=== PATIENT | female | born 1970 | race Caucasian/White ===

== ENCOUNTER 2019-02-15 19:39 | Emergency (ER) | payer OTHER ==
[2019-02-15 22:54] LABS: ADD MAN DIFF? NO
[2019-02-15 22:56] LABS: BASOPHILS % 0.5 % (0.0-2.0); EOSINOPHILS # 0.1 10^3/ul (0.0-0.5); EOSINOPHILS % 1.4 % (0.0-7.0); HEMATOCRIT 37.4 % (37.0-47.0); HEMOGLOBIN 11.6 g/dl (12.0-16.0); LYMPHOCYTES # 2.2 10^3/ul (0.8-2.9); LYMPHOCYTES % 32.5 % (15.0-51.0); MEAN CORPUSCULAR HEMOGLOBIN 23.9 pg (29.0-33.0); MEAN CORPUSCULAR VOLUME 77.1 fl (82.0-101.0); MEAN PLATELET VOLUME 9.5 fl (7.4-10.4); MONOCYTE # 0.6 10^3/ul (0.3-0.9); MONOCYTES % 8.4 % (0.0-11.0); NEUTROPHIL # 3.8 10^3/ul (1.6-7.5); NEUTROPHILS % 56.9 % (39.0-77.0); PLATELET COUNT 292 10^3/UL (140-415); RED BLOOD COUNT 4.85 10^6/ul (4.20-5.40); RED CELL DISTRIBUTION WIDTH 13.9 % (11.5-14.5)
[2019-02-15 22:56] LABS: WHITE BLOOD COUNT 6.7 10^3/ul (4.8-10.8)
[2019-02-15 23:02] LABS: ADD UMIC YES; UR ASCORBIC ACID NEGATIVE (NEGATIVE); UR BACTERIA FEW /HPF (NONE SEEN); UR BILIRUBIN (Dip) NEGATIVE (NEGATIVE); UR BLOOD (Dip) 3+ mg/dL (NEGATIVE); UR CLARITY CLOUDY (CLEAR); UR COLOR YELLOW (YELLOW); UR GLUCOSE (Dip) NEGATIVE (NEGATIVE); UR KETONES (Dip) TRACE mg/dL (NEGATIVE); UR LEUKOCYTE ESTERASE (Dip) 3+ Leu/ul (NEGATIVE); UR NITRITE (Dip) NEGATIVE (NEGATIVE); UR RBC > 182 /HPF (0-5); UR SPECIFIC GRAVITY (Dip) 1.015 (1.003-1.030); UR SQUAMOUS EPITHELIAL CELL FEW /HPF (FEW); UR TOTAL PROTEIN (Dip) 1+ mg/dl (NEGATIVE); UR UROBILINOGEN (Dip) NEGATIVE (NEGATIVE); UR WBC > 182 /HPF (0-5)
[2019-02-15] MEDS: SOD CHLORIDE 0.9% 1,000 ML IV (23:22)
[2019-02-15] MEDS: ONDANSETRON 4 MG INJ IV (23:22)
[2019-02-15] MEDS: morphine 4 MG/ML VIAL IV (23:22)
[2019-02-15] MEDS: KETOROLAC 30 MG INJ IV (23:23)
[2019-02-15 23:24] LABS: ALANINE AMINOTRANSFERASE 21 IU/L (13-69); ALBUMIN 4.4 g/dl (3.3-4.9); ALBUMIN/GLOBULIN RATIO 1.33; ALKALINE PHOSPHATASE 88 IU/L (42-121); ANION GAP 12 (5-13); ASPARTATE AMINO TRANSFERASE 21 IU/L (15-46); BILIRUBIN,INDIRECT 0.2 mg/dl (0-1.1); BILIRUBIN,TOTAL 0.2 mg/dl (0.2-1.3); BLOOD UREA NITROGEN 18 mg/dl (7-20); CALCIUM 9.6 mg/dl (8.4-10.2); CARBON DIOXIDE 20 mmol/L (21-31); CHLORIDE 107 mmol/L (97-110); CREATININE 0.63 mg/dl (0.44-1.00); Estimated GFR > 60 mL/min (>60); GLUCOSE 94 mg/dl (70-220); LIPASE 230 U/L (23-300); SODIUM 139 mmol/L (135-144); TOTAL PROTEIN 7.7 g/dl (6.1-8.1)
[2019-02-16] MEDS: HYDROmorphONE 1 MG/ML SYG IV (03:25)
== END 2019-02-16 05:50 | disposition home or self-care (01) ==
LOC: E/R 02-16 05:50
DX: R10.9 Unspecified abdominal pain (principal); Z87.891 Personal history of nicotine dependence
CPT/HCPCS: 36415; 74176; 80053; 81001; 81025; 83690; 85025; 87086; 96374; 96375; 99284-25

== ENCOUNTER 2019-03-04 20:14 | Inpatient (IN) | payer OTHER ==
[2019-03-04] MEDS: ONDANSETRON 4 MG INJ IV (20:50)
[2019-03-04] MEDS: HYDROmorphONE 0.5 MG/0.5 ML SYG IV (20:50)
[2019-03-04] MEDS: SOD CHLORIDE 0.9% 1,000 ML IV (20:52)
[2019-03-04 21:00] LABS: ADD MAN DIFF? NO; BASOPHILS % 0.4 % (0.0-2.0); EOSINOPHILS # 0.1 10^3/ul (0.0-0.5); HEMATOCRIT 29.4 % (37.0-47.0); HEMOGLOBIN 8.9 g/dl (12.0-16.0); LYMPHOCYTES # 2.2 10^3/ul (0.8-2.9); LYMPHOCYTES % 48.6 % (15.0-51.0); MEAN CORPUSCULAR HEMOGLOBIN 23.5 pg (29.0-33.0); MEAN CORPUSCULAR HGB CONC 30.3 g/dl (32.0-37.0); MEAN CORPUSCULAR VOLUME 77.6 fl (82.0-101.0); MONOCYTE # 0.5 10^3/ul (0.3-0.9); MONOCYTES % 10.4 % (0.0-11.0); NEUTROPHIL # 1.8 10^3/ul (1.6-7.5); NEUTROPHILS % 38.4 % (39.0-77.0); PLATELET COUNT 235 10^3/UL (140-415); RED BLOOD COUNT 3.79 10^6/ul (4.20-5.40)
[2019-03-04 21:00] LABS: WHITE BLOOD COUNT 4.6 10^3/ul (4.8-10.8)
[2019-03-04] MEDS ORDERED: NACL 0.9% 3 ML SYG IV (21:00)
[2019-03-04] MEDS ORDERED: ACETAMINOPHEN 325 MG TAB PO (21:00)
[2019-03-04 21:18] LABS: ALANINE AMINOTRANSFERASE 20 IU/L (13-69); ALBUMIN 3.5 g/dl (3.3-4.9); ALBUMIN/GLOBULIN RATIO 1.29; ALKALINE PHOSPHATASE 69 IU/L (42-121); ANION GAP 6 (5-13); ASPARTATE AMINO TRANSFERASE 21 IU/L (15-46); BILIRUBIN,INDIRECT 0.2 mg/dl (0-1.1); BILIRUBIN,TOTAL 0.2 mg/dl (0.2-1.3); BLOOD UREA NITROGEN 13 mg/dl (7-20); CALCIUM 8.7 mg/dl (8.4-10.2); CARBON DIOXIDE 22 mmol/L (21-31); CHLORIDE 113 mmol/L (97-110); CREATININE 0.69 mg/dl (0.44-1.00); Estimated GFR > 60 mL/min (>60); GLUCOSE 103 mg/dl (70-220); POTASSIUM 4.2 mmol/L (3.5-5.1); SODIUM 141 mmol/L (135-144); TOTAL PROTEIN 6.2 g/dl (6.1-8.1)
[2019-03-05] MEDS: HYDROmorphONE 0.5 MG/0.5 ML SYG IV ×6 (01:04→22:18)
[2019-03-05] MEDS ORDERED: CEFTRIAXONE 1 GM/50 ML (PMX) 50 ML IVPB (03:30)
[2019-03-05] MEDS: TAMSULOSIN (SR) 0.4 MG CAP PO ×2 (04:48→21:28)
[2019-03-05 05:39] LABS: ADD MAN DIFF? NO
[2019-03-05 05:51] LABS: WHITE BLOOD COUNT 4.6 10^3/ul (4.8-10.8)
[2019-03-05 05:51] LABS: BASOPHILS % 0.7 % (0.0-2.0); EOSINOPHILS # 0.1 10^3/ul (0.0-0.5); EOSINOPHILS % 1.8 % (0.0-7.0); HEMATOCRIT 29.9 % (37.0-47.0); HEMOGLOBIN 9.1 g/dl (12.0-16.0); LYMPHOCYTES # 1.6 10^3/ul (0.8-2.9); LYMPHOCYTES % 34.6 % (15.0-51.0); MEAN CORPUSCULAR HEMOGLOBIN 23.5 pg (29.0-33.0); MEAN CORPUSCULAR HGB CONC 30.4 g/dl (32.0-37.0); MEAN CORPUSCULAR VOLUME 77.3 fl (82.0-101.0); MEAN PLATELET VOLUME 10.3 fl (7.4-10.4); MONOCYTE # 0.4 10^3/ul (0.3-0.9); MONOCYTES % 8.3 % (0.0-11.0); NEUTROPHIL # 2.5 10^3/ul (1.6-7.5); NEUTROPHILS % 54.2 % (39.0-77.0); PLATELET COUNT 255 10^3/UL (140-415); RED BLOOD COUNT 3.87 10^6/ul (4.20-5.40); RED CELL DISTRIBUTION WIDTH 14.3 % (11.5-14.5)
[2019-03-05 06:26] LABS: IRON 27 ug/dl (35-150)
[2019-03-05 06:29] LABS: ALANINE AMINOTRANSFERASE 28 IU/L (13-69); ALBUMIN 3.4 g/dl (3.3-4.9); ALBUMIN/GLOBULIN RATIO 1.21; ALKALINE PHOSPHATASE 73 IU/L (42-121); ANION GAP 9 (5-13); ASPARTATE AMINO TRANSFERASE 18 IU/L (15-46); BILIRUBIN,INDIRECT 0.1 mg/dl (0-1.1); BILIRUBIN,TOTAL 0.1 mg/dl (0.2-1.3); BLOOD UREA NITROGEN 12 mg/dl (7-20); CALCIUM 8.6 mg/dl (8.4-10.2); CARBON DIOXIDE 22 mmol/L (21-31); CHLORIDE 111 mmol/L (97-110); CHOL/HDL RATIO 5.8 RATIO; CHOLESTEROL 181 mg/dl (100-200); Estimated GFR > 60 mL/min (>60); GLUCOSE 95 mg/dl (70-220); HDL CHOLESTEROL 31 mg/dl (37-92); LDL CHOLESTEROL,CALCULATED 119 mg/dl; POTASSIUM 4.2 mmol/L (3.5-5.1); SODIUM 142 mmol/L (135-144); TOTAL PROTEIN 6.2 g/dl (6.1-8.1); TRIGLYCERIDES 154 mg/dl (0-149)
[2019-03-05 06:35] LABS: % IRON SATURATION 6 % SAT (22-52); TOTAL IRON BINDING CAPACITY 418 ug/dl (241-421)
[2019-03-05 06:40] LABS: HEMOGLOBIN A1C 5.7 % (0-5.9)
[2019-03-05] MEDS: KETOROLAC 15 MG INJ IV ×2 (07:32→16:40)
[2019-03-05] MEDS: SOD CHLORIDE 0.9% 1,000 ML IV ×3 (07:33→23:25)
[2019-03-05 08:21] LABS: FERRITIN 3.4 ng/ml (11.1-264.0)
[2019-03-05] MEDS: CEFTRIAXONE 1 GM/50 ML (PMX) 50 ML IVPB (14:02)
[2019-03-05] MEDS: SOD FERRIC GLUC COMPLX 125 MG in SOD CHLORIDE 0.9% 100 ML IVPB (14:47)
[2019-03-06] MEDS: KETOROLAC 15 MG INJ IV ×3 (00:53→23:59)
[2019-03-06] MEDS: HYDROmorphONE 0.5 MG/0.5 ML SYG IV ×4 (02:40→20:09)
[2019-03-06 05:09] LABS: ADD MAN DIFF? NO
[2019-03-06 05:15] LABS: WHITE BLOOD COUNT 4.6 10^3/ul (4.8-10.8)
[2019-03-06 05:15] LABS: BASOPHILS % 0.7 % (0.0-2.0); EOSINOPHILS # 0.1 10^3/ul (0.0-0.5); EOSINOPHILS % 2.4 % (0.0-7.0); HEMATOCRIT 28.6 % (37.0-47.0); HEMOGLOBIN 8.7 g/dl (12.0-16.0); LYMPHOCYTES # 1.6 10^3/ul (0.8-2.9); LYMPHOCYTES % 35.6 % (15.0-51.0); MEAN CORPUSCULAR HEMOGLOBIN 23.4 pg (29.0-33.0); MEAN CORPUSCULAR HGB CONC 30.4 g/dl (32.0-37.0); MEAN CORPUSCULAR VOLUME 76.9 fl (82.0-101.0); MEAN PLATELET VOLUME 10.2 fl (7.4-10.4); MONOCYTE # 0.5 10^3/ul (0.3-0.9); MONOCYTES % 10.2 % (0.0-11.0); NEUTROPHIL # 2.4 10^3/ul (1.6-7.5); NEUTROPHILS % 50.9 % (39.0-77.0); PLATELET COUNT 237 10^3/UL (140-415); RED BLOOD COUNT 3.72 10^6/ul (4.20-5.40); RED CELL DISTRIBUTION WIDTH 14.2 % (11.5-14.5)
[2019-03-06 05:37] LABS: PHOSPHORUS 4.1 mg/dl (2.5-4.9)
[2019-03-06 05:37] LABS: MAGNESIUM 1.9 mg/dl (1.7-2.5)
[2019-03-06 05:42] LABS: ALANINE AMINOTRANSFERASE 24 IU/L (13-69); ALBUMIN 3.2 g/dl (3.3-4.9); ALBUMIN/GLOBULIN RATIO 1.14; ALKALINE PHOSPHATASE 67 IU/L (42-121); ANION GAP 7 (5-13); ASPARTATE AMINO TRANSFERASE 18 IU/L (15-46); BILIRUBIN,INDIRECT 0.1 mg/dl (0-1.1); BILIRUBIN,TOTAL 0.1 mg/dl (0.2-1.3); BLOOD UREA NITROGEN 11 mg/dl (7-20); CALCIUM 8.4 mg/dl (8.4-10.2); CARBON DIOXIDE 25 mmol/L (21-31); CHLORIDE 110 mmol/L (97-110); CREATININE 0.58 mg/dl (0.44-1.00); Estimated GFR > 60 mL/min (>60); GLUCOSE 109 mg/dl (70-220); POTASSIUM 4.2 mmol/L (3.5-5.1); SODIUM 142 mmol/L (135-144)
[2019-03-06] MEDS: SOD CHLORIDE 0.9% 1,000 ML IV ×2 (09:41→22:14)
[2019-03-06] MEDS: HYDROCODONE/APAP (7.5/325) TAB PO (12:42)
[2019-03-06] MEDS: SOD FERRIC GLUC COMPLX 125 MG in SOD CHLORIDE 0.9% 100 ML IVPB (13:10)
[2019-03-06] MEDS: CEFTRIAXONE 1 GM/50 ML (PMX) 50 ML IVPB (17:21)
[2019-03-06] MEDS: TAMSULOSIN (SR) 0.4 MG CAP PO (20:09)
[2019-03-07] MEDS: HYDROmorphONE 0.5 MG/0.5 ML SYG IV ×5 (01:52→23:28)
[2019-03-07 05:14] LABS: ADD MAN DIFF? NO
[2019-03-07] MEDS: HYDROCODONE/APAP (7.5/325) TAB PO ×4 (05:24→19:03)
[2019-03-07 05:25] LABS: EOSINOPHILS # 0.1 10^3/ul (0.0-0.5); EOSINOPHILS % 3.5 % (0.0-7.0); HEMATOCRIT 28.5 % (37.0-47.0); HEMOGLOBIN 8.7 g/dl (12.0-16.0); LYMPHOCYTES # 1.8 10^3/ul (0.8-2.9); LYMPHOCYTES % 44.6 % (15.0-51.0); MEAN CORPUSCULAR HEMOGLOBIN 23.6 pg (29.0-33.0); MEAN CORPUSCULAR HGB CONC 30.5 g/dl (32.0-37.0); MEAN CORPUSCULAR VOLUME 77.4 fl (82.0-101.0); MEAN PLATELET VOLUME 10.2 fl (7.4-10.4); MONOCYTE # 0.4 10^3/ul (0.3-0.9); MONOCYTES % 9.5 % (0.0-11.0); NEUTROPHIL # 1.7 10^3/ul (1.6-7.5); NEUTROPHILS % 41.2 % (39.0-77.0); PLATELET COUNT 249 10^3/UL (140-415); RED BLOOD COUNT 3.68 10^6/ul (4.20-5.40); RED CELL DISTRIBUTION WIDTH 14.3 % (11.5-14.5)
[2019-03-07 06:03] LABS: PHOSPHORUS 4.1 mg/dl (2.5-4.9)
[2019-03-07 06:09] LABS: ALANINE AMINOTRANSFERASE 18 IU/L (13-69); ALBUMIN 3.2 g/dl (3.3-4.9); ALBUMIN/GLOBULIN RATIO 1.18; ALKALINE PHOSPHATASE 67 IU/L (42-121); ANION GAP 8 (5-13); ASPARTATE AMINO TRANSFERASE 19 IU/L (15-46); BILIRUBIN,INDIRECT 0.1 mg/dl (0-1.1); BILIRUBIN,TOTAL 0.1 mg/dl (0.2-1.3); BLOOD UREA NITROGEN 6 mg/dl (7-20); CALCIUM 8.7 mg/dl (8.4-10.2); CARBON DIOXIDE 24 mmol/L (21-31); CHLORIDE 109 mmol/L (97-110); CREATININE 0.49 mg/dl (0.44-1.00); Estimated GFR > 60 mL/min (>60); GLUCOSE 96 mg/dl (70-220); POTASSIUM 3.8 mmol/L (3.5-5.1); SODIUM 141 mmol/L (135-144); TOTAL PROTEIN 5.9 g/dl (6.1-8.1)
[2019-03-07] MEDS: POLYETHYLENE GLYCOL 17 GM PACKET PO (09:07)
[2019-03-07] MEDS: DOCUSATE SODIUM 100 MG CAP PO ×2 (09:07→21:06)
[2019-03-07] MEDS: SOD CHLORIDE 0.9% 1,000 ML IV ×3 (09:07→23:28)
[2019-03-07] MEDS: SOD FERRIC GLUC COMPLX 125 MG in SOD CHLORIDE 0.9% 100 ML IVPB (13:11)
[2019-03-07] MEDS: CEFTRIAXONE 1 GM/50 ML (PMX) 50 ML IVPB (14:42)
[2019-03-07] MEDS: TAMSULOSIN (SR) 0.4 MG CAP PO (21:06)
[2019-03-08] MEDS: HYDROCODONE/APAP (7.5/325) TAB PO ×3 (00:46→21:19)
[2019-03-08] MEDS: HYDROmorphONE 0.5 MG/0.5 ML SYG IV ×5 (05:31→22:50)
[2019-03-08 06:33] LABS: ADD MAN DIFF? NO
[2019-03-08 06:39] LABS: BASOPHILS % 0.7 % (0.0-2.0); EOSINOPHILS # 0.1 10^3/ul (0.0-0.5); EOSINOPHILS % 2.4 % (0.0-7.0); HEMATOCRIT 30.6 % (37.0-47.0); HEMOGLOBIN 9.4 g/dl (12.0-16.0); LYMPHOCYTES # 1.9 10^3/ul (0.8-2.9); LYMPHOCYTES % 45.8 % (15.0-51.0); MEAN CORPUSCULAR HEMOGLOBIN 23.7 pg (29.0-33.0); MEAN CORPUSCULAR HGB CONC 30.7 g/dl (32.0-37.0); MEAN CORPUSCULAR VOLUME 77.3 fl (82.0-101.0); MEAN PLATELET VOLUME 10.2 fl (7.4-10.4); MONOCYTE # 0.4 10^3/ul (0.3-0.9); MONOCYTES % 8.7 % (0.0-11.0); NEUTROPHIL # 1.7 10^3/ul (1.6-7.5); NEUTROPHILS % 41.9 % (39.0-77.0); PLATELET COUNT 270 10^3/UL (140-415); RED BLOOD COUNT 3.96 10^6/ul (4.20-5.40); RED CELL DISTRIBUTION WIDTH 14.4 % (11.5-14.5)
[2019-03-08 06:39] LABS: WHITE BLOOD COUNT 4.2 10^3/ul (4.8-10.8)
[2019-03-08 07:04] LABS: MAGNESIUM 1.9 mg/dl (1.7-2.5)
[2019-03-08 07:04] LABS: PHOSPHORUS 4.7 mg/dl (2.5-4.9)
[2019-03-08 07:13] LABS: ALANINE AMINOTRANSFERASE 26 IU/L (13-69); ALBUMIN 3.6 g/dl (3.3-4.9); ALBUMIN/GLOBULIN RATIO 1.33; ALKALINE PHOSPHATASE 73 IU/L (42-121); ANION GAP 6 (5-13); ASPARTATE AMINO TRANSFERASE 20 IU/L (15-46); BILIRUBIN,INDIRECT 0.2 mg/dl (0-1.1); BILIRUBIN,TOTAL 0.2 mg/dl (0.2-1.3); BLOOD UREA NITROGEN 7 mg/dl (7-20); CALCIUM 8.9 mg/dl (8.4-10.2); CARBON DIOXIDE 26 mmol/L (21-31); CHLORIDE 109 mmol/L (97-110); CREATININE 0.58 mg/dl (0.44-1.00); Estimated GFR > 60 mL/min (>60); GLUCOSE 87 mg/dl (70-220); POTASSIUM 3.9 mmol/L (3.5-5.1); SODIUM 141 mmol/L (135-144); TOTAL PROTEIN 6.3 g/dl (6.1-8.1)
[2019-03-08] MEDS: POLYETHYLENE GLYCOL 17 GM PACKET PO (09:03)
[2019-03-08] MEDS: BISACODYL (EC) 5 MG TAB PO (09:03)
[2019-03-08] MEDS: DOCUSATE SODIUM 100 MG CAP PO ×3 (09:03→21:16)
[2019-03-08] MEDS: SOD CHLORIDE 0.9% 1,000 ML IV ×2 (10:02→21:20)
[2019-03-08] MEDS: CEFTRIAXONE 1 GM/50 ML (PMX) 50 ML IVPB (14:04)
[2019-03-08] MEDS: ONDANSETRON 4 MG INJ IV (15:13)
[2019-03-08] MEDS: TAMSULOSIN (SR) 0.4 MG CAP PO (21:16)
[2019-03-09] MEDS: HYDROmorphONE 0.5 MG/0.5 ML SYG IV ×5 (04:26→21:53)
[2019-03-09] MEDS: ONDANSETRON 4 MG INJ IV (05:52)
[2019-03-09 06:10] LABS: ADD MAN DIFF? NO
[2019-03-09 06:19] LABS: BASOPHIL # 0.1 10^3/ul (0.0-0.1); BASOPHILS % 1.1 % (0.0-2.0); EOSINOPHILS # 0.1 10^3/ul (0.0-0.5); EOSINOPHILS % 2.1 % (0.0-7.0); HEMATOCRIT 34.3 % (37.0-47.0); HEMOGLOBIN 10.5 g/dl (12.0-16.0); LYMPHOCYTES # 1.8 10^3/ul (0.8-2.9); LYMPHOCYTES % 37.4 % (15.0-51.0); MEAN CORPUSCULAR HEMOGLOBIN 23.6 pg (29.0-33.0); MEAN CORPUSCULAR HGB CONC 30.6 g/dl (32.0-37.0); MEAN CORPUSCULAR VOLUME 77.1 fl (82.0-101.0); MEAN PLATELET VOLUME 9.8 fl (7.4-10.4); MONOCYTE # 0.4 10^3/ul (0.3-0.9); MONOCYTES % 8.2 % (0.0-11.0); NEUTROPHIL # 2.4 10^3/ul (1.6-7.5); NEUTROPHILS % 50.8 % (39.0-77.0); PLATELET COUNT 299 10^3/UL (140-415); RED BLOOD COUNT 4.45 10^6/ul (4.20-5.40); RED CELL DISTRIBUTION WIDTH 14.6 % (11.5-14.5)
[2019-03-09 06:19] LABS: WHITE BLOOD COUNT 4.7 10^3/ul (4.8-10.8)
[2019-03-09 06:37] LABS: INR 0.94; PROTIME 12.7 Sec (11.9-14.9)
[2019-03-09 07:05] LABS: ALANINE AMINOTRANSFERASE 24 IU/L (13-69); ALBUMIN/GLOBULIN RATIO 1.29; ALKALINE PHOSPHATASE 77 IU/L (42-121); ANION GAP 10 (5-13); ASPARTATE AMINO TRANSFERASE 27 IU/L (15-46); BILIRUBIN,INDIRECT 0.1 mg/dl (0-1.1); BILIRUBIN,TOTAL 0.1 mg/dl (0.2-1.3); BLOOD UREA NITROGEN 9 mg/dl (7-20); CALCIUM 9.3 mg/dl (8.4-10.2); CARBON DIOXIDE 24 mmol/L (21-31); CHLORIDE 106 mmol/L (97-110); CREATININE 0.57 mg/dl (0.44-1.00); Estimated GFR > 60 mL/min (>60); GLUCOSE 107 mg/dl (70-220); POTASSIUM 4.2 mmol/L (3.5-5.1); SODIUM 140 mmol/L (135-144); TOTAL PROTEIN 7.1 g/dl (6.1-8.1)
[2019-03-09] MEDS: SOD CHLORIDE 0.9% 1,000 ML IV ×2 (07:07→20:35)
[2019-03-09] MEDS: POLYETHYLENE GLYCOL 17 GM PACKET PO (08:53)
[2019-03-09] MEDS: DOCUSATE SODIUM 100 MG CAP PO ×2 (08:53→20:22)
[2019-03-09 09:05] LABS: HEMOGLOBIN A1C 5.6 % (0-5.9)
[2019-03-09] MEDS: CEFTRIAXONE 1 GM/50 ML (PMX) 50 ML IVPB (12:59)
[2019-03-09] MEDS: TAMSULOSIN (SR) 0.4 MG CAP PO (20:22)
[2019-03-09] MEDS: HYDROCODONE/APAP (7.5/325) TAB PO (20:23)
[2019-03-10] MEDS: HYDROmorphONE 0.5 MG/0.5 ML SYG IV ×6 (01:55→22:23)
[2019-03-10] MEDS: SOD CHLORIDE 0.9% 1,000 ML IV ×2 (04:22→16:49)
[2019-03-10] MEDS: POLYETHYLENE GLYCOL 17 GM PACKET PO (08:50)
[2019-03-10] MEDS: DOCUSATE SODIUM 100 MG CAP PO ×2 (08:50→21:28)
[2019-03-10] MEDS: HYDROCODONE/APAP (7.5/325) TAB PO ×2 (09:20→16:49)
[2019-03-10] MEDS: CEFTRIAXONE 1 GM/50 ML (PMX) 50 ML IVPB (14:38)
[2019-03-10] MEDS: TAMSULOSIN (SR) 0.4 MG CAP PO (21:28)
[2019-03-10] MEDS: CIPROFLOXACIN 400MG/D5W 200 ML IVPB (21:28)
[2019-03-11] MEDS: HYDROmorphONE 0.5 MG/0.5 ML SYG IV ×5 (02:59→20:02)
[2019-03-11] MEDS: SOD CHLORIDE 0.9% 1,000 ML IV ×3 (03:00→20:54)
[2019-03-11 05:44] LABS: ADD MAN DIFF? NO
[2019-03-11 05:52] LABS: BASOPHILS % 0.6 % (0.0-2.0); EOSINOPHILS # 0.1 10^3/ul (0.0-0.5); HEMATOCRIT 31.3 % (37.0-47.0); HEMOGLOBIN 9.7 g/dl (12.0-16.0); LYMPHOCYTES # 1.9 10^3/ul (0.8-2.9); LYMPHOCYTES % 34.9 % (15.0-51.0); MEAN CORPUSCULAR HEMOGLOBIN 24.4 pg (29.0-33.0); MEAN CORPUSCULAR VOLUME 78.6 fl (82.0-101.0); MEAN PLATELET VOLUME 9.9 fl (7.4-10.4); MONOCYTE # 0.4 10^3/ul (0.3-0.9); MONOCYTES % 7.2 % (0.0-11.0); NEUTROPHILS % 54.9 % (39.0-77.0); PLATELET COUNT 251 10^3/UL (140-415); RED BLOOD COUNT 3.98 10^6/ul (4.20-5.40); RED CELL DISTRIBUTION WIDTH 15.9 % (11.5-14.5)
[2019-03-11 05:52] LABS: WHITE BLOOD COUNT 5.4 10^3/ul (4.8-10.8)
[2019-03-11 06:21] LABS: ALANINE AMINOTRANSFERASE 29 IU/L (13-69); ALBUMIN 3.6 g/dl (3.3-4.9); ALBUMIN/GLOBULIN RATIO 1.33; ALKALINE PHOSPHATASE 67 IU/L (42-121); ANION GAP 5 (5-13); ASPARTATE AMINO TRANSFERASE 27 IU/L (15-46); BILIRUBIN,INDIRECT 0.2 mg/dl (0-1.1); BILIRUBIN,TOTAL 0.2 mg/dl (0.2-1.3); BLOOD UREA NITROGEN 9 mg/dl (7-20); CARBON DIOXIDE 26 mmol/L (21-31); CHLORIDE 110 mmol/L (97-110); CREATININE 0.54 mg/dl (0.44-1.00); Estimated GFR > 60 mL/min (>60); GLUCOSE 108 mg/dl (70-220); POTASSIUM 4.2 mmol/L (3.5-5.1); SODIUM 141 mmol/L (135-144); TOTAL PROTEIN 6.3 g/dl (6.1-8.1)
[2019-03-11] MEDS ORDERED: DEXAMETHASONE 4 MG/ML 5 ML INJ (07:00)
[2019-03-11] MEDS ORDERED: METOCLOPRAMIDE 10 MG INJ (07:00)
[2019-03-11] MEDS ORDERED: SEVOFLURANE 15 MIN (07:00)
[2019-03-11] MEDS: DOCUSATE SODIUM 100 MG CAP PO ×2 (09:10→20:55)
[2019-03-11] MEDS: POLYETHYLENE GLYCOL 17 GM PACKET PO (09:10)
[2019-03-11] MEDS: CIPROFLOXACIN 400MG/D5W 200 ML IVPB ×2 (09:11→20:55)
[2019-03-11] MEDS ORDERED: FENTAnyl 50 MCG/ML VIAL (17:04)
[2019-03-11] MEDS ORDERED: MIDAZOLAM 1 MG/ML 2 ML INJ (17:04)
[2019-03-11] MEDS ORDERED: PROPOFOL 20 ML (17:50)
[2019-03-11] MEDS ORDERED: ONDANSETRON 4 MG INJ (17:53)
[2019-03-11] MEDS ORDERED: CEFAZOLIN 1 GM INJ (17:59)
[2019-03-11] MEDS ORDERED: LIDOCAINE 2% (SDV) 5 ML INJ (17:59)
[2019-03-11] MEDS ORDERED: DIPHENHYDRAMINE 50 MG INJ IV (18:00)
[2019-03-11] MEDS ORDERED: FENTAnyl 50 MCG/ML VIAL IV ×2 (18:00)
[2019-03-11] MEDS ORDERED: LEVALBUTEROL (NEB) 1.25 MG/0.5 ML AMP HHN (18:00)
[2019-03-11] MEDS ORDERED: KETOROLAC 30 MG INJ IV (18:00)
[2019-03-11] MEDS ORDERED: HYDROmorphONE 1 MG/5 ML IV SYRINGE IV ×2 (18:00)
[2019-03-11] MEDS ORDERED: MEPERIDINE 25 MG INJ IV (18:00)
[2019-03-11] MEDS ORDERED: ONDANSETRON 4 MG INJ IV (18:00)
[2019-03-11] MEDS ORDERED: IOHEXOL 300MG/ML 30 ML BTL (18:09)
[2019-03-11] MEDS: TAMSULOSIN (SR) 0.4 MG CAP PO (20:55)
[2019-03-12] MEDS: HYDROmorphONE 0.5 MG/0.5 ML SYG IV ×3 (00:24→14:32)
[2019-03-12 07:32] LABS: ADD MAN DIFF? NO
[2019-03-12 07:38] LABS: BASOPHILS % 0.3 % (0.0-2.0); EOSINOPHILS % 0.2 % (0.0-7.0); HEMATOCRIT 31.8 % (37.0-47.0); HEMOGLOBIN 9.6 g/dl (12.0-16.0); LYMPHOCYTES # 1.5 10^3/ul (0.8-2.9); LYMPHOCYTES % 24.2 % (15.0-51.0); MEAN CORPUSCULAR HEMOGLOBIN 23.5 pg (29.0-33.0); MEAN CORPUSCULAR HGB CONC 30.2 g/dl (32.0-37.0); MEAN CORPUSCULAR VOLUME 77.9 fl (82.0-101.0); MEAN PLATELET VOLUME 10.5 fl (7.4-10.4); MONOCYTE # 0.3 10^3/ul (0.3-0.9); NEUTROPHIL # 4.2 10^3/ul (1.6-7.5); NEUTROPHILS % 69.8 % (39.0-77.0); PLATELET COUNT 241 10^3/UL (140-415); RED BLOOD COUNT 4.08 10^6/ul (4.20-5.40); RED CELL DISTRIBUTION WIDTH 16.2 % (11.5-14.5)
[2019-03-12 08:06] LABS: ALANINE AMINOTRANSFERASE 42 IU/L (13-69); ALBUMIN 3.6 g/dl (3.3-4.9); ALBUMIN/GLOBULIN RATIO 1.33; ALKALINE PHOSPHATASE 70 IU/L (42-121); ANION GAP 7 (5-13); ASPARTATE AMINO TRANSFERASE 28 IU/L (15-46); BILIRUBIN,INDIRECT 0.2 mg/dl (0-1.1); BILIRUBIN,TOTAL 0.2 mg/dl (0.2-1.3); BLOOD UREA NITROGEN 10 mg/dl (7-20); CALCIUM 9.4 mg/dl (8.4-10.2); CARBON DIOXIDE 24 mmol/L (21-31); CHLORIDE 109 mmol/L (97-110); CREATININE 0.62 mg/dl (0.44-1.00); Estimated GFR > 60 mL/min (>60); GLUCOSE 99 mg/dl (70-220); POTASSIUM 4.5 mmol/L (3.5-5.1); SODIUM 140 mmol/L (135-144); TOTAL PROTEIN 6.3 g/dl (6.1-8.1)
[2019-03-12] MEDS: CIPROFLOXACIN 400MG/D5W 200 ML IVPB (08:28)
[2019-03-12] MEDS: POLYETHYLENE GLYCOL 17 GM PACKET PO (08:28)
[2019-03-12] MEDS: DOCUSATE SODIUM 100 MG CAP PO (08:28)
[2019-03-12] MEDS: HYDROCODONE/APAP (7.5/325) TAB PO (08:29)
[2019-03-12] MEDS: SOD CHLORIDE 0.9% 1,000 ML IV (08:29)
[2019-03-12] MEDS: CIPROFLOXACIN 500 MG TAB PO (17:30)
== END 2019-03-12 19:10 | disposition home or self-care (01) | DRG 699 ==
LOC: PP2 20:14
PROC: 0TP98DZ Removal of Intraluminal Device from Ureter, Via Natural or Artificial Opening Endoscopic (ICD-10-PCS; principal; 2019-03-11 17:30)
DX: T83.592A Infection and inflammatory reaction due to indwelling ureteral stent, initial encounter (principal); N10 Acute pyelonephritis; E66.9 Obesity, unspecified; Z68.33 Body mass index [BMI] 33.0-33.9, adult; R31.9 Hematuria, unspecified; D50.9 Iron deficiency anemia, unspecified; Z97.5 Presence of (intrauterine) contraceptive device; B95.2 Enterococcus as the cause of diseases classified elsewhere
CPT/HCPCS: 71045; 74018; 74420; 80053; 80061; 82306; 82728; 83036; 83540; 83735; 84100; 84443; 84703; 85025; 85610; 87081; 87086; 93005; 99217

== ENCOUNTER 2019-06-02 05:46 | Emergency (ER) | payer OTHER ==
[2019-06-02 06:28] LABS: ADD MAN DIFF? NO
[2019-06-02 06:29] LABS: BASOPHILS % 0.6 % (0.0-2.0); EOSINOPHILS # 0.1 10^3/ul (0.0-0.5); EOSINOPHILS % 1.5 % (0.0-7.0); HEMATOCRIT 42.8 % (37.0-47.0); HEMOGLOBIN 13.8 g/dl (12.0-16.0); LYMPHOCYTES # 2.4 10^3/ul (0.8-2.9); LYMPHOCYTES % 36.6 % (15.0-51.0); MEAN CORPUSCULAR HEMOGLOBIN 25.6 pg (29.0-33.0); MEAN CORPUSCULAR HGB CONC 32.2 g/dl (32.0-37.0); MEAN CORPUSCULAR VOLUME 79.3 fl (82.0-101.0); MEAN PLATELET VOLUME 10.1 fl (7.4-10.4); MONOCYTE # 0.4 10^3/ul (0.3-0.9); MONOCYTES % 6.6 % (0.0-11.0); NEUTROPHIL # 3.6 10^3/ul (1.6-7.5); NEUTROPHILS % 54.2 % (39.0-77.0); PLATELET COUNT 273 10^3/UL (140-415); RED CELL DISTRIBUTION WIDTH 16.2 % (11.5-14.5)
[2019-06-02 06:29] LABS: WHITE BLOOD COUNT 6.6 10^3/ul (4.8-10.8)
[2019-06-02] MEDS: FAMOTIDINE 20 MG INJ IV (06:31)
[2019-06-02] MEDS: morphine 4 MG/ML VIAL IV (06:31)
[2019-06-02] MEDS: SOD CHLORIDE 0.9% 1,000 ML IV (06:31)
[2019-06-02] MEDS: ONDANSETRON 4 MG INJ IV (06:31)
[2019-06-02] MEDS: KETOROLAC 30 MG INJ IV (06:40)
[2019-06-02 06:49] LABS: ALANINE AMINOTRANSFERASE 22 IU/L (13-69); ALBUMIN 4.6 g/dl (3.3-4.9); ALBUMIN/GLOBULIN RATIO 1.31; ALKALINE PHOSPHATASE 72 IU/L (42-121); AMYLASE 95 U/L (11-123); ANION GAP 10 (5-13); ASPARTATE AMINO TRANSFERASE 21 IU/L (15-46); BILIRUBIN,INDIRECT 0.3 mg/dl (0-1.1); BILIRUBIN,TOTAL 0.3 mg/dl (0.2-1.3); BLOOD UREA NITROGEN 13 mg/dl (7-20); CALCIUM 9.7 mg/dl (8.4-10.2); CARBON DIOXIDE 21 mmol/L (21-31); CHLORIDE 113 mmol/L (97-110); CREATININE 0.75 mg/dl (0.44-1.00); Estimated GFR > 60 mL/min (>60); GLUCOSE 113 mg/dl (70-220); LIPASE 280 U/L (23-300); POTASSIUM 4.2 mmol/L (3.5-5.1); SODIUM 144 mmol/L (135-144); TOTAL PROTEIN 8.1 g/dl (6.1-8.1)
[2019-06-02 06:57] LABS: ADD UMIC YES; UR ASCORBIC ACID NEGATIVE (NEGATIVE); UR BACTERIA FEW /HPF (NONE SEEN); UR BILIRUBIN (Dip) NEGATIVE (NEGATIVE); UR BLOOD (Dip) 1+ mg/dL (NEGATIVE); UR CLARITY CLOUDY (CLEAR); UR COLOR YELLOW (YELLOW); UR GLUCOSE (Dip) NEGATIVE (NEGATIVE); UR KETONES (Dip) NEGATIVE (NEGATIVE); UR LEUKOCYTE ESTERASE (Dip) 3+ Leu/ul (NEGATIVE); UR NITRITE (Dip) NEGATIVE (NEGATIVE); UR NONSQUAMOUS EPITHELIAL CELL 4 /HPF (NONE SEEN); UR RBC 5 /HPF (0-5); UR SPECIFIC GRAVITY (Dip) 1.009 (1.003-1.030); UR SQUAMOUS EPITHELIAL CELL MODERATE /HPF (FEW); UR TOTAL PROTEIN (Dip) NEGATIVE (NEGATIVE); UR UROBILINOGEN (Dip) NEGATIVE (NEGATIVE); UR WBC 81 /HPF (0-5)
[2019-06-02] MEDS: CEFTRIAXONE 1 GM/50 ML (PMX) 50 ML IVPB (08:37)
[2019-06-02] MEDS: morphine 2 MG INJ IV (08:37)
== END 2019-06-02 09:03 | disposition home or self-care (01) ==
LOC: FTE 05:46
DX: N39.0 Urinary tract infection, site not specified (principal)
CPT/HCPCS: 74176; 76705; 80053; 81001; 81025; 82150; 83690; 85025; 87086; 96361; 96365; 96375; 96376; 99285-25

== ENCOUNTER 2019-06-24 21:24 | Emergency (ER) | payer OTHER ==
[2019-06-25] MEDS: SOD CHLORIDE 0.9% 1,000 ML IV (00:01)
[2019-06-25] MEDS: ONDANSETRON 4 MG INJ IV (00:02)
[2019-06-25] MEDS: morphine 4 MG/ML VIAL IV (00:02)
[2019-06-25 00:10] LABS: ADD MAN DIFF? NO
[2019-06-25 00:12] LABS: BASOPHILS % 0.4 % (0.0-2.0); EOSINOPHILS # 0.1 10^3/ul (0.0-0.5); EOSINOPHILS % 0.9 % (0.0-7.0); HEMATOCRIT 41.4 % (37.0-47.0); HEMOGLOBIN 13.4 g/dl (12.0-16.0); LYMPHOCYTES # 2.3 10^3/ul (0.8-2.9); LYMPHOCYTES % 22.4 % (15.0-51.0); MEAN CORPUSCULAR HEMOGLOBIN 26.4 pg (29.0-33.0); MEAN CORPUSCULAR HGB CONC 32.4 g/dl (32.0-37.0); MEAN CORPUSCULAR VOLUME 81.7 fl (82.0-101.0); MEAN PLATELET VOLUME 10.2 fl (7.4-10.4); MONOCYTE # 0.7 10^3/ul (0.3-0.9); MONOCYTES % 6.9 % (0.0-11.0); NEUTROPHILS % 69.1 % (39.0-77.0); PLATELET COUNT 239 10^3/UL (140-415); RED BLOOD COUNT 5.07 10^6/ul (4.20-5.40); RED CELL DISTRIBUTION WIDTH 15.5 % (11.5-14.5)
[2019-06-25 00:12] LABS: WHITE BLOOD COUNT 10.1 10^3/ul (4.8-10.8)
[2019-06-25 00:18] LABS: ADD UMIC YES; UR ASCORBIC ACID NEGATIVE (NEGATIVE); UR BACTERIA FEW /HPF (NONE SEEN); UR BILIRUBIN (Dip) NEGATIVE (NEGATIVE); UR BLOOD (Dip) 1+ mg/dL (NEGATIVE); UR CLARITY CLOUDY (CLEAR); UR COLOR YELLOW (YELLOW); UR GLUCOSE (Dip) NEGATIVE (NEGATIVE); UR KETONES (Dip) NEGATIVE (NEGATIVE); UR LEUKOCYTE ESTERASE (Dip) 2+ Leu/ul (NEGATIVE); UR NITRITE (Dip) NEGATIVE (NEGATIVE); UR NONSQUAMOUS EPITHELIAL CELL 2 /HPF (NONE SEEN); UR RBC 4 /HPF (0-5); UR SPECIFIC GRAVITY (Dip) 1.016 (1.003-1.030); UR SQUAMOUS EPITHELIAL CELL FEW /HPF (FEW); UR TOTAL PROTEIN (Dip) NEGATIVE (NEGATIVE); UR UROBILINOGEN (Dip) NEGATIVE (NEGATIVE); UR WBC 13 /HPF (0-5)
[2019-06-25 00:27] LABS: LACTIC ACID 0.9 mmol/L (0.5-2.0)
[2019-06-25 00:28] LABS: ALANINE AMINOTRANSFERASE 35 IU/L (13-69); ALBUMIN 4.6 g/dl (3.3-4.9); ALBUMIN/GLOBULIN RATIO 1.27; ALKALINE PHOSPHATASE 77 IU/L (42-121); ANION GAP 12 (5-13); ASPARTATE AMINO TRANSFERASE 26 IU/L (15-46); BILIRUBIN,INDIRECT 0.4 mg/dl (0-1.1); BILIRUBIN,TOTAL 0.4 mg/dl (0.2-1.3); BLOOD UREA NITROGEN 14 mg/dl (7-20); CALCIUM 9.7 mg/dl (8.4-10.2); CARBON DIOXIDE 23 mmol/L (21-31); CHLORIDE 108 mmol/L (97-110); CREATININE 0.66 mg/dl (0.44-1.00); Estimated GFR > 60 mL/min (>60); GLUCOSE 113 mg/dl (70-220); LIPASE 149 U/L (23-300); POTASSIUM 4.2 mmol/L (3.5-5.1); SODIUM 143 mmol/L (135-144); TOTAL PROTEIN 8.2 g/dl (6.1-8.1)
[2019-06-25] MEDS: KETOROLAC 15 MG INJ IV (02:16)
[2019-06-25] MEDS: CEFTRIAXONE 1 GM INJ IM (02:16)
[2019-06-25] MEDS: CEFTRIAXONE 1 GM/50 ML (PMX) 50 ML IVPB (02:23)
[2019-06-25] MEDS ORDERED: CEFTRIAXONE 1 GM INJ IVPB (02:30)
[2019-06-25] MEDS ORDERED: CEFTRIAXONE 1 GM INJ IM (02:30)
== END 2019-06-25 03:13 | disposition home or self-care (01) ==
LOC: FTE 06-25 03:13
DX: M54.5 Low back pain (principal); R10.9 Unspecified abdominal pain
CPT/HCPCS: 36415; 76775; 80053; 81001; 81025; 83605; 83690; 85025; 87086; 96361; 96365; 96375; 99285-25